=== PATIENT | female | born 1955 | race Caucasian/White ===

== ENCOUNTER → 2017-01-22 | Outpatient (CLI) | payer MEDICARE ==
[~2017-01-22] VITALS: Ht 154.9 cm; Wt 68.1 kg
[~2017-01-22] MED LIST: AMLODIPINE-OLM1 EAC1 PO; ASPIRIN PO; CLONIDINE PO; CLOPIDOGREL75 MG PO; LASIX20 MG PO; LEXAPRO PO; LIPITOR20 MG PO; METOPROLOL PO; MOBIC PO; NITROGLYCERIN SL; TRAMADOL HCL50 M2 PO
--- NOTE | ~2017-01-22 | EKG ---
PATIENT: ROYCE SMITH UNIT #: [id number] Ventricular Rate: 64 BPM Atrial Rate: 64 BPM P-R Interval: 156 ms QRS Duration: 74 ms Q-T Interval: 412 ms QTC Calculation(Bezet): 425 ms P [place]: 38 degrees Calculated R [place]: 11 degrees Calculated T [place]: 19 degrees Diagnosis Line: Normal sinus rhythm Diagnosis Line: Normal ECG Diagnosis Line: No previous ECGs available Diagnosis Line: Confirmed by KYLAH BARNETT MD ([id number]) on 01/22/2017 Diagnosis Line: 7:48:11 PM INTERPRETING MD: ANIBAL LÓPEZ
[2017-01-22 12:10] LABS: HEMATOCRIT 40.1 % (35.0-45.0); HEMOGLOBIN 13.4 gm/dL (12.0-16.0); MEAN CELL VOLUME 87.4 FL (83-96); MEAN CORPUSCULAR HEMOGLOBIN 29.3 PG (28-34); MEAN CORPUSCULAR HGB CONC 33.5 g/dL (30-36); MEAN PLATELET VOLUME 7.6 FL (6.5-11.5); RED BLOOD COUNT 4.59 X10e (3.90-5.30); RED CELL DISTRIBUTION WIDTH 13.8 % (11.0-15.5); WHITE BLOOD COUNT 6.1 X10e3 (4.0-10.5)
[2017-01-22 12:24] LABS: PARTIAL THROMBOPLASTIN TIME 25.7 SECONDS (23.5-31.3); PROTHROMBIN TIME (PATIENT) 11.2 SECONDS (10.0-11.7)
[2017-01-22 12:31] LABS: CALCIUM SERUM 9.3 mg/dL (8.4-10.2); CREATININE SERUM 0.5 mg/dL (0.6-1.4); POTASSIUM 4.2 mmol/L (3.5-5.1)
== END | disposition home or self-care (01) ==
LOC: CSSDAY 11:30 → CCVL 11:30
PROVIDERS: Internal Medicine Cardiovascular Disease
DX: R07.9 Chest pain, unspecified (principal)
CPT/HCPCS: 36415; 80048; 85027; 85610; 85730; 93005; C1769; C1887; C1894; J1644; J2250; J3010